=== PATIENT | female | born 1995 | race Hispanic/Latino ===

== ENCOUNTER 2021-11-14 09:05 | Emergency (ER) | payer OTHER ==
[~2021-11-14] VITALS: Ht 154.9 cm; Wt 79.9 kg
[2021-11-14] MEDS ORDERED: ONDA4TAB6 PO ×2 (09:17→13:00)
[2021-11-14] MEDS ORDERED: UNIS25TA3 PO (09:17)
[2021-11-14] MEDS ORDERED: NS 1,000 ML IV ONE ×2 (09:40→13:00)
[2021-11-14] MEDS ORDERED: ONDANSETRON 4MG/2ML VIAL IV ONE (09:40)
[2021-11-14 10:43] LABS: BASO # 0.1 10^3/uL (0.0-0.2); BASO % 0.4 % (0.0-1.0); EOS % 0.1 % (0.0-3.0); HEMATOCRIT 42.5 % (36.0-47.0); HEMOGLOBIN 14.9 g/dl (12.0-15.5); LYMPH # 1.1 10^3/uL (1.5-5.0); LYMPH % 9.7 % (24.0-44.0); MEAN CORPUSCULAR HEMOGLOBIN 28.3 pg (27.0-33.0); MEAN CORPUSCULAR HGB CONC 35.1 g/dl (32.0-36.5); MEAN CORPUSCULAR VOLUME 80.6 fl (80.0-96.0); MONO # 0.5 10^3/uL (0.0-0.8); MONO % 4.4 % (2.0-8.0); NEUTROPHILS # 9.6 10^3/uL (1.5-8.5); NEUTROPHILS % 84.8 % (36.0-66.0); PLATELET COUNT, AUTOMATED 426 10^3/uL (150-450); RED BLOOD COUNT 5.27 10^6/uL (4.00-5.40); WHITE BLOOD COUNT 11.3 10^3/uL (4.0-10.0)
[2021-11-14 11:06] LABS: ALBUMIN 4.1 GM/DL (3.2-5.2); ALT/SGPT 50 U/L (12-78); BILIRUBIN,DIRECT 0.4 MG/DL (0.0-0.2); BILIRUBIN,TOTAL 0.7 MG/DL (0.2-1.0); BLOOD UREA NITROGEN 11 MG/DL (7-18); CALCIUM LEVEL 10.5 MG/DL (8.5-10.1); CARBON DIOXIDE LEVEL 16 MEQ/L (21-32); CHLORIDE LEVEL 103 MEQ/L (98-107); CREATININE FOR GFR 1.16 MG/DL (0.55-1.30); GLOMERULAR FILTRATION RATE > 60.0 (>60); GLUCOSE, FASTING 133 MG/DL (70-100); LIPASE 295 U/L (73-393); POTASSIUM SERUM 3.5 MEQ/L (3.5-5.1); SODIUM LEVEL 134 MEQ/L (136-145); TOTAL PROTEIN 9.2 GM/DL (6.4-8.2)
[2021-11-14] MEDS ORDERED: MAALOX 30 ML SUSP *UDC PO ONE (11:55)
[2021-11-14] MEDS ORDERED: REGL5TAB2 PO (13:00)
[2021-11-14] MEDS ORDERED: METOCLOPRAMIDE INJ 10MG/2ML VIAL (J2765 PER 1) IV ONE (13:00)
[2021-11-14 14:20] VITALS: BP 104/59
== END 2021-11-14 14:21 | disposition home or self-care (01) ==
LOC: M ED 09:05
DX: O21.1 Hyperemesis gravidarum with metabolic disturbance (principal); R51.9 Headache, unspecified; Z90.89 Acquired absence of other organs; Z3A.14 14 weeks gestation of pregnancy
CPT/HCPCS: 80048; 80076; 81001; 83605; 83690; 85025; 87086; 93041; 96361; 96374; 96375; 99284; J2405; J2765

== ENCOUNTER 2021-12-06 12:30 | Emergency (ER) | payer OTHER ==
[~2021-12-06] VITALS: Ht 154.9 cm; Wt 78.8 kg
[2021-12-06 12:30] VITALS: BP 137/94
[~2021-12-06 12:30] MED LIST: ONDA4TAB6 PO; REGL5TAB2 PO; UNIS25TA3 PO
[2021-12-06] MEDS ORDERED: NS 1,000 ML IV ONE (13:20)
[2021-12-06] MEDS ORDERED: ONDANSETRON 4MG/2ML VIAL IV ONE (13:20)
[2021-12-06] MEDS ORDERED: ONDA4TAB6 PO (14:48)
== END 2021-12-06 15:10 | disposition home or self-care (01) ==
LOC: M ED 12:30
DX: O21.1 Hyperemesis gravidarum with metabolic disturbance (principal); Z90.89 Acquired absence of other organs; Z3A.17 17 weeks gestation of pregnancy
CPT/HCPCS: 96361; 96374; 99284; J2405

== ENCOUNTER 2022-05-10 16:47 | Inpatient (IN) | payer OTHER ==
[~2022-05-10] VITALS: Ht 154.9 cm; Wt 84.5 kg
[2022-05-10] VITALS (13 sets, daily range): BP systolic 118–158; BP diastolic 77–101
[2022-05-10] MEDS ORDERED: LACTATED RINGER'S 1000 ML IV STA (16:49)
[2022-05-10] MEDS ORDERED: TRANEXAMIC ACID INJection 1,000 MG in NS 100 ML IV PRN (16:50)
[2022-05-10] MEDS ORDERED: OXYTOCIN INJ 10 UNITS/ML VIAL (J2590) IV PRN (16:50)
[2022-05-10] MEDS ORDERED: CARBOPROST TROMETHAMINE 250 MCG/ML AMP IM PRN (16:50)
[2022-05-10] MEDS ORDERED: LR 1,000 ML IV SCH (16:50)
[2022-05-10] MEDS ORDERED: OXYTOCIN INJ 10 UNITS/ML VIAL (J2590) IM PRN (16:50)
[2022-05-10] MEDS ORDERED: OXYTOCIN DRIP 30 UNITS in IV 1 EA IV PRN ×6 (16:50)
[2022-05-10] MEDS ORDERED: METHYLERGONOVINE MALEATE 0.2 MG/ML VIAL (J2210) IM PRN (16:50)
[2022-05-10] MEDS ORDERED: OXYTOCIN DRIP 30 UNITS in IV 1 EA IV SCH (16:50)
[2022-05-10] MEDS ORDERED: LIDOCAINE 1% MDV 20ML VIAL INFIL PRN (16:50)
[2022-05-10 18:38] LABS: HEMATOCRIT 28.4 % (36.0-47.0); HEMOGLOBIN 9.3 g/dl (12.0-15.5); MEAN CORPUSCULAR HGB CONC 32.7 g/dl (32.0-36.5); MEAN CORPUSCULAR VOLUME 79.3 fl (80.0-96.0); PLATELET COUNT, AUTOMATED 266 10^3/uL (150-450); RED BLOOD COUNT 3.58 10^6/uL (4.00-5.40); WHITE BLOOD COUNT 6.5 10^3/uL (4.0-10.0)
[2022-05-10 19:09] LABS: CREATININE,RANDOM URINE 16.9 MG/DL; TOTAL PROTEIN,RANDOM URINE 9.9 MG/DL (0.0-12.0)
[2022-05-10 19:39] LABS: ALT/SGPT 14 U/L (12-78); BILIRUBIN,TOTAL 0.4 MG/DL (0.2-1.0); CREATININE FOR GFR 0.57 MG/DL (0.55-1.30); GLOMERULAR FILTRATION RATE > 60.0 (>60); LDH LACTATE DEHYDROGENASE 258 U/L (84-246); URIC ACID 3.3 MG/DL (2.6-6.0)
[2022-05-10] MEDS ORDERED: miSOPROStol 50MCG 1/2 TABLET PO ONE (21:25)
[2022-05-10] MEDS ORDERED: FENTANYL 2MCG/ML ROPIVACAINE 0.2% IN 0.9% NACL 100ML IVBAG As Ordered ONE (22:52)
[2022-05-10] MEDS ORDERED: LR 500 ML IV PRN (23:00)
[2022-05-10] MEDS ORDERED: diphenhydrAMINE 50MG/ML VIAL (J1200) IV PRN (23:00)
[2022-05-10] MEDS ORDERED: ONDANSETRON 4MG 2ML VIAL IV PRN (23:00)
[2022-05-10] MEDS ORDERED: FENTANYL/ROPIVACAINE/NACL BAG 100 ML EPIDURAL SCH (23:00)
[2022-05-10] MEDS ORDERED: NALOXONE INJ 0.4MG/1ML VIAL (J2310 PER 1MG) IV PRN (23:00)
[2022-05-10] MEDS ORDERED: ePHEDrine SULFATE 25 MG/5 ML(5MG/ML) SYRINGE IVP PRN (23:00)
[2022-05-10] MEDS ORDERED: EPIDURAL/PCA KEYS XX PRN (23:00)
[2022-05-10] MEDS: LR 1,000 ML IV SCH (23:32)
[2022-05-11] VITALS (22 sets, daily range): BP systolic 109–154; BP diastolic 60–92
[2022-05-11] MEDS: LR 1,000 ML IV SCH (01:47)
[2022-05-11] MEDS ORDERED: RHOGAM 300 MCG (1500 IU) INJ (J2790) IM SCH (05:20)
[2022-05-11] MEDS ORDERED: DIBUCAINE 1% OINTMENT 30GM TOP PRN (05:20)
[2022-05-11] MEDS ORDERED: METHYLERGONOVINE MALEATE 0.2 MG TAB PO PRN (05:20)
[2022-05-11] MEDS ORDERED: MOM 30ML SUSPENSION UDC PO PRN (05:20)
[2022-05-11] MEDS ORDERED: ANUSOL HC CREAM 30GM TOP PRN (05:20)
[2022-05-11] MEDS: PRENATAL VITAMINS CHEWABLE TABLET PO SCH (07:27)
[2022-05-11] MEDS: DOCUSATE SODIUM 100MG CAPSULE PO SCH ×2 (07:27→20:01)
[2022-05-11] MEDS: IBUPROFEN 800 MG TAB PO PRN (07:28)
[2022-05-11] MEDS: ACETAMINOPHEN 500 MG TAB PO PRN (20:01)
[2022-05-12 06:00] VITALS: BP 131/77
[2022-05-12] MEDS: ACETAMINOPHEN 500 MG TAB PO PRN (08:22)
[2022-05-12] MEDS: PRENATAL VITAMINS CHEWABLE TABLET PO SCH (08:22)
[2022-05-12] MEDS: DOCUSATE SODIUM 100MG CAPSULE PO SCH (08:22)
[2022-05-12] MEDS: IBUPROFEN 800 MG TAB PO PRN (08:23)
[2022-05-12] MEDS ORDERED: IBUP80TA PO (10:20)
[2022-05-12] MEDS ORDERED: PRENCHW PO (10:20)
[2022-05-12] MEDS ORDERED: COLA100C5 PO (10:20)
[2022-05-13] MEDS ORDERED: MEASLES,MUMPS,RUBELLA VACCINE INJ (MMR-II) (90707) SC.IMMUN ONE (09:00)
== END 2022-05-12 13:15 | disposition home or self-care (01) | DRG 807 ==
LOC: M LDI 16:47 → M OBS 05-11 06:48
PROVIDERS: ADMIT Obstetrics & Gynecology; ATTEND Obstetrics & Gynecology
PROC: 10E0XZZ Delivery of Products of Conception, External Approach (ICD-10-PCS; principal; 2022-05-11)
PROC: 0HQ9XZZ Repair Perineum Skin, External Approach (ICD-10-PCS; 2022-05-11)
PROC: 0UQMXZZ Repair Vulva, External Approach (ICD-10-PCS; 2022-05-11)
DX: O14.04 Mild to moderate pre-eclampsia, complicating childbirth (principal); Z37.0 Single live birth; Z3A.39 39 weeks gestation of pregnancy; O69.81X0 Labor and delivery complicated by cord around neck, without compression, not applicable or unspecified; O70.0 First degree perineal laceration during delivery; O71.82 Other specified trauma to perineum and vulva

== ENCOUNTER 2023-11-21 04:24 | Inpatient (IN) | payer OTHER ==
[2023-11-21] VITALS (46 sets, daily range): BP systolic 92–178; BP diastolic 59–94; O2SAT 97
[~2023-11-21] VITALS: Ht 154.9 cm; Wt 95.4 kg
[~2023-11-21 04:24] MED LIST changes: +COLA100C5 PO; +IBUP80TA PO; +PRENCHW PO
[2023-11-21] MEDS ORDERED: HOME MED LIST COMPLETE! XX SCH (05:15)
[2023-11-21] MEDS ORDERED: CARBOPROST TROMETHAMINE 250 MCG/ML AMP IM PRN (07:00)
[2023-11-21] MEDS ORDERED: LIDOCAINE 1% MDV 20ML VIAL INFIL PRN (07:00)
[2023-11-21] MEDS: LR 1,000 ML IV SCH ×2 (07:00→08:30)
[2023-11-21] MEDS ORDERED: OXYTOCIN INJ 10UNITS/ML 1ML VIAL IV PRN (07:00)
[2023-11-21] MEDS ORDERED: METHYLERGONOVINE MALEATE 0.2MG/ML 1ML VIAL IM PRN (07:00)
[2023-11-21] MEDS ORDERED: OXYTOCIN DRIP 30 UNITS in IV 1 EA IV PRN (07:00)
[2023-11-21] MEDS ORDERED: OXYTOCIN INJ 10UNITS/ML 1ML VIAL IM PRN (07:00)
[2023-11-21] MEDS ORDERED: OXYTOCIN DRIP 30 UNITS in IV 1 EA IV SCH (07:00)
[2023-11-21] MEDS ORDERED: TRANEXAMIC ACID INJection 1,000 MG in NS 100 ML IV PRN (07:00)
[2023-11-21] MEDS: BUTORPHANOL 2 MG/ML 1ML VIAL IV ONE (07:15)
[2023-11-21] MEDS: PROMETHAZINE 25MG/ML 1ML VIAL IM ONE (07:15)
[2023-11-21] MEDS: LACTATED RINGER'S 1000 ML IV STA (07:34)
[2023-11-21 07:55] LABS: HEMATOCRIT 30.3 % (36.0-47.0); HEMOGLOBIN 9.7 g/dl (12.0-15.5); MEAN CORPUSCULAR HEMOGLOBIN 25.3 pg (27.0-33.0); MEAN CORPUSCULAR VOLUME 78.9 fl (80.0-96.0); PLATELET COUNT, AUTOMATED 225 10^3/uL (150-450); RED BLOOD COUNT 3.84 10^6/uL (4.00-5.40)
[2023-11-21] MEDS ORDERED: FENTANYL 2MCG/ML ROPIVACAINE 0.2% IN 0.9% NACL 100ML IVBAG As Ordered ONE (08:04)
[2023-11-21] MEDS ORDERED: LR 500 ML IV PRN (08:05)
[2023-11-21] MEDS ORDERED: EPIDURAL/PCA KEYS XX PRN (08:05)
[2023-11-21] MEDS ORDERED: ePHEDrine SULFATE 25 MG/5 ML(5MG/ML) SYRINGE IVP PRN (08:05)
[2023-11-21] MEDS ORDERED: diphenhydrAMINE 50MG/ML VIAL IV PRN (08:05)
[2023-11-21] MEDS ORDERED: ONDANSETRON 4MG 2ML VIAL IV PRN (08:05)
[2023-11-21] MEDS ORDERED: NALOXONE INJ 0.4MG/1ML VIAL IV PRN (08:05)
[2023-11-21] MEDS: FENTANYL/ROPIVACAINE/NACL BAG 100 ML EPIDURAL SCH (08:33)
[2023-11-21] MEDS ORDERED: DOCUSATE SODIUM 100MG CAPSULE PO PRN (14:20)
[2023-11-21] MEDS ORDERED: METHYLERGONOVINE MALEATE 0.2 MG TAB PO PRN (14:20)
[2023-11-21] MEDS ORDERED: DIBUCAINE 1% OINTMENT 30GM TOP PRN (14:20)
[2023-11-21] MEDS ORDERED: IBUPROFEN 600MG TAB PO PRN (14:20)
[2023-11-21] MEDS ORDERED: IBUPROFEN 800 MG TAB PO PRN (14:20)
[2023-11-21] MEDS ORDERED: RHOGAM 300MCG (1500IU) INJ IM SCH (14:20)
[2023-11-21] MEDS: OXYTOCIN DRIP 30 UNITS in IV 1 EA IV SCH (14:53)
[2023-11-21] MEDS: ACETAMINOPHEN 500 MG TAB PO PRN (14:54)
[2023-11-21] MEDS: OXYTOCIN DRIP 30 UNITS in IV 1 EA IV PRN (14:54)
[2023-11-21] MEDS: ACETAMINOPHEN TAB 650MG DOSE (2X325MG) PO PRN (22:27)
[2023-11-22 06:00] VITALS: BP 132/74
[2023-11-22] MEDS: PRENATAL VITAMINS CHEWABLE TABLET PO SCH (09:00)
[2023-11-23] MEDS ORDERED: MEASLES,MUMPS,RUBELLA VACCINE INJ (MMR-II) SC.IMMUN ONE (09:00)
== END 2023-11-22 12:25 | disposition home or self-care (01) | DRG 806 ==
LOC: M LDO 04:24 → M LDI 06:58 → M OBS 16:37
PROVIDERS: ADMIT Obstetrics & Gynecology; ATTEND Obstetrics & Gynecology
PROC: 10E0XZZ Delivery of Products of Conception, External Approach (ICD-10-PCS; principal; 2023-11-21)
DX: O69.1XX0 Labor and delivery complicated by cord around neck, with compression, not applicable or unspecified (principal); Z37.0 Single live birth; O98.52 Other viral diseases complicating childbirth; O77.0 Labor and delivery complicated by meconium in amniotic fluid; B00.9 Herpesviral infection, unspecified; Z3A.40 40 weeks gestation of pregnancy